=== PATIENT | female | born 2000 | race Two or more races ===

== ENCOUNTER 2023-09-15 14:55 | Emergency (ER) | payer OTHER ==
[~2023-09-15] VITALS: Ht 165.1 cm; Wt 63.1 kg
[2023-09-15 16:12] VITALS: BP 115/77; PULSE 97; RESP 16; O2SAT 98
[2023-09-15] MEDS ORDERED: ACETAMINOPHEN 500 MG TAB PO ONE (16:30)
[2023-09-15 16:34] VITALS: TEMP 98.2
== END 2023-09-15 17:24 | disposition home or self-care (01) ==
LOC: ER 14:55
DX: S16.1XXA Strain of muscle, fascia and tendon at neck level, initial encounter (principal); S46.912A Strain of unspecified muscle, fascia and tendon at shoulder and upper arm level, left arm, initial encounter; V43.62XA Car passenger injured in collision with other type car in traffic accident, initial encounter; Y93.89 Activity, other specified; Y92.410 Unspecified street and highway as the place of occurrence of the external cause; Y99.8 Other external cause status
CPT/HCPCS: 72040; 73010